=== PATIENT | female | born 1980 | race Caucasian/White ===

== ENCOUNTER 2018-05-15 07:10 | Emergency (ER) | payer MEDICAID, SELFPAY ==
[2018-05-15 07:11] VITALS: BP 128/74; PULSE 92; RESP 15; TEMP 36.4; O2SAT 100; BMI 24.2
--- NOTE | 2018-05-15 07:34 | ED.VISSUMM ---
- ER Visit Summary Date of Service: 05/15/18 Chief Complaint: I think I have warms History of Present Illness: The patient is a 38 F who presents because she believes she has worms. She noted small singh multiple hair like threads on the toilet paper. She states that her cat had worms. Upon further questioning was determined that her cat was never examined by a senior application software engineer and the stool was never examined. Patient was informed that one cannot conclude that the cat had warms. Furthermore, one cannot conclude that she got worms from her cat. She denies any nocturnal perianal itching. She denies weight loss. She denies night sweats. She denies any rectal pain. Physical Examination: Patient is a thin woman. Vital signs are normal. Rectal exam reveals a small external hemorrhoid at 5:00. There is no evidence of pinworms. There are no dermatologic lesions noted. The remainder of exam is unremarkable. Test Results: None were obtained Emergency Department Course and Treatment: Recommended that patient apply Scotch tape to her buttocks area before going to bed and see if there are any worms in the morning. She was informed of the external hemorrhoid. Treatment Plan: Application of scotch tape prior to going to bed Disposition: Discharged home Impression: 1. External hemorrhoid initial encounter 2. Concern for worms This note was generated with [employer] dictation software. It may contain incorrect words, spelling, and punctuation that were not noted in review of the chart prior to signing ED Disposition - Plan for ED Patient: Disposition: Home or Assisted Living Chief Complaint: Other, Pain/Inj Instructions: ED Hemorrhoids Referrals: Elvin Mccoy MD [Primary Care Provider] - As Needed Additional Instructions: Recommend application of scotch tape to buttocks/rectal area prior to going to bed. If you note small white pinworms in the morning recommend contacting your doctor for treatment.
--- NOTE | 2018-05-15 07:42 | ED.DCSUM_ITS ---
- ER Visit Summary Date of Service: 05/15/18 Chief Complaint: I think I have warms History of Present Illness: The patient is a 38 F who presents because she believes she has worms. She noted small singh multiple hair like threads on the toilet paper. She states that her cat had worms. Upon further questioning was determined that her cat was never examined by a commercial real estate attorney and the stool was never examined. Patient was informed that one cannot conclude that the cat had warms. Furthermore, one cannot conclude that she got worms from her cat. She denies any nocturnal perianal itching. She denies weight loss. She denies night sweats. She denies any rectal pain. Physical Examination: Patient is a thin woman. Vital signs are normal. Rectal exam reveals a small external hemorrhoid at 5:00. There is no evidence of pinworms. There are no dermatologic lesions noted. The remainder of exam is unremarkable. Test Results: None were obtained Emergency Department Course and Treatment: Recommended that patient apply Scotch tape to her buttocks area before going to bed and see if there are any worms in the morning. She was informed of the external hemorrhoid. Treatment Plan: Application of scotch tape prior to going to bed Disposition: Discharged home Impression: 1. External hemorrhoid initial encounter 2. Concern for worms This note was generated with [employer] dictation software. It may contain incorrect words, spelling, and punctuation that were not noted in review of the chart prior to signing ED Disposition - Plan for ED Patient: Disposition: Home or Assisted Living Chief Complaint: Other, Pain/Inj Instructions: ED Hemorrhoids Referrals: Elvin Mccoy MD [Primary Care Provider] - As Needed Additional Instructions: Recommend application of scotch tape to buttocks/rectal area prior to going to bed. If you note small white pinworms in the morning recommend contacting your doctor for treatment.
[2018-05-15 07:58] VITALS: BP 122/76; PULSE 83; RESP 16; O2SAT 98
== END 2018-05-15 08:02 | disposition home or self-care (01) ==
PROVIDERS: Emergency Provider Emergency Medicine; Family Provider Family Medicine; PCP Family Medicine
DX: K64.4 Residual hemorrhoidal skin tags (principal); Z72.0 Tobacco use
CPT/HCPCS: 99282

== ENCOUNTER → 2025-09-22 | Outpatient (CLI) | payer MEDICAID, SELFPAY ==
--- NOTE | 2025-09-22 13:15 | RAD_ITS ---
PROCEDURE: ANKLE MIN 3 VIEWS 09/22/2025 REASON FOR EXAM: R/O FX AND SEPTIC JOINT TECHNIQUE: Procedure Code: RADANK Modality: DX Procedure: ANKLE MIN 3 VIEWS Laterality: COMPARISON: None FINDINGS: Bones: No abnormality. Joints: Normal alignment. Mortise appears intact. No effusion. Soft tissues: Soft tissues are unremarkable. Other: RAD/Ankle min 3 Views IMPRESSION: NO ACUTE FRACTURE OR DISLOCATION. Reading Location: [id number]
--- NOTE | 2025-09-22 13:15 | RAD_ITS ---
PROCEDURE: FOOT MIN 3 VIEWS 09/22/2025 REASON FOR EXAM: R/O FX AND SEPTIC JOINT TECHNIQUE: Procedure Code: RADFO Modality: DX Procedure: FOOT MIN 3 VIEWS COMPARISON: None FINDINGS: Mild hallux valgus deformity. No bony abnormality is seen. Soft tissues are unremarkable. RAD/Foot min 3 Views IMPRESSION: No acute abnormality is seen. Reading Location: [facility]
== END | disposition home or self-care (01) ==
LOC: LAB 12:59 → RAD 13:00
PROVIDERS: PCP Family Medicine
DX: S93.401A Sprain of unspecified ligament of right ankle, initial encounter (principal); R60.0 Localized edema; L03.115 Cellulitis of right lower limb
CPT/HCPCS: 73610; 73630